=== PATIENT | female | born 1955 | race Caucasian/White ===

== ENCOUNTER 2021-03-25 05:09 | Emergency (ER) | payer BC, OTHER ==
--- NOTE | 2021-03-25 05:29 | EDM.PDOC ---
ED HPI GENERAL MEDICAL PROBLEM - General Chief Complaint: Respiratory Problem Stated Complaint: shortness of breath Time Seen by Provider: 03/25/21 05:15 Source of Information: Reports: Patient, Family History Limitations: Reports: No Limitations - History of Present Illness INITIAL COMMENTS - FREE TEXT/NARRATIVE: Patient presents here to the emergency room after 2 weeks of ongoing shortness of breath secondary to exposure of Covid at her faith. Patient has not seen a primary care provider because she does not believe any going to doctors she states she has been trying [id number] vitamins. She states she has a dry nonproductive cough intermittent fevers the highest it has been has been 100.7 several days ago but she says it is normally runs about 97-98 her temperature she also states the shortness of breath is no different and has not increased but she wanted to come get checked out. She states she is also had some myalgias with intermittent lower back pain but has no symptoms she has been drinking fluids about a quart of water a day and eating okay with no issues she denies any dyspnea on exertion orthopnea or PND no swelling to the lower extremities no chest pain She takes no medications has no medical history She has no other complaints at this time Duration: Week(s): Severity: Mild Associated Symptoms: Reports: Cough, Fever/Chills, Shortness of Breath. Denies: cough w sputum, Diaphoresis, Headaches, Loss of Appetite, Nausea/Vomiting, Weakness - Related Data Allergies Allergy/AdvReac Type Severity Reaction Status Date / Time No Known Allergies Allergy Verified 10/13/14 18:32 Home Meds: Home Meds traMADol [Ultram] 50 mg PO Q4H PRN #2 tab 10/13/14 [Rx] Past Medical History - Past Health History Medical/Surgical History: Denies Medical/Surgical History ED ROS GENERAL - Review of Systems Review Of Systems: See Below Constitutional: Reports: Fever. Denies: Chills, Malaise, Weakness, Fatigue, Night Sweats, Diaphoresis, Decreased Appetite HEENT: Reports: No Symptoms Respiratory: Reports: Shortness of Breath, Cough. Denies: Wheezing, Pleuritic Chest Pain, Hemoptysis Cardiovascular: Reports: No Symptoms Endocrine: Reports: No Symptoms GI/Abdominal: Reports: No Symptoms : Reports: No Symptoms. Denies: Discharge, Dysuria, Flank Pain, Frequency, Incontinence, Urgency Musculoskeletal: Reports: No Symptoms, Back Pain Skin: Reports: No Symptoms Neurological: Reports: No Symptoms Psychiatric: Reports: No Symptoms Hematologic/Lymphatic: Reports: No Symptoms Immunologic: Reports: No Symptoms ED EXAM, GENERAL - Physical Exam Exam: See Below Exam Limited By: No Limitations General Appearance: Alert, WD/WN, No Apparent Distress Eye Exam: Bilateral Eye: EOMI, Normal Inspection, PERRL Ears: Normal External Exam, Normal Canal, Hearing Grossly Normal, Normal TMs Nose: Normal Inspection, Normal Mucosa, No Blood Throat/Mouth: Normal Inspection, Normal Lips, Normal Teeth, Normal Gums, Normal Oropharynx, Normal Voice, No Airway Compromise, Other (Patient talking 15+ word sentences no acute distress noted no respiratory distress noted all vital signs within normal limits) Head: Atraumatic, Normocephalic Neck: Normal Inspection, Supple, Non-Tender, Full Range of Motion Respiratory/Chest: No Respiratory Distress, Lungs Clear, Normal Breath Sounds, No Accessory Muscle Use, Chest Non-Tender Cardiovascular: Normal Peripheral Pulses, Regular Rate, Rhythm, No Edema, No Gallop, No JVD, No Murmur, No Rub GI/Abdominal: Normal Bowel Sounds, Soft, Non-Tender, No Organomegaly, No Distention. No: Guarding, Rigid, Rebound Back Exam: Normal Inspection, Full Range of Motion. No: CVA Tenderness (L), CVA Tenderness (R) Extremities: Normal Inspection, Normal Range of Motion, Non-Tender, No Pedal Edema Neurological: Alert, Oriented, CN II-XII Intact, Normal Cognition, Normal Gait Psychiatric: Normal Affect, Normal Mood Skin Exam: Warm, Dry, Intact, Normal Color, No Rash Lymphatic: No Adenopathy Course - Vital Signs Text/Narrative:: CBC BMP Covid chest x-ray White blood cell count 5.5 Covid positive BMP within normal limits We will discharge patient on Decadron 4 mg 2 tablets every day x3 days Bilateral infiltrates consistent with pneumonia per chest x-ray Patient will be treated with 1 g Rocephin IM and Z-Ranjit and albuterol inhaler Vital signs were rechecked and found to be within normal limits respiratory rate is now 20 - Orders/Labs/Meds Orders: Active Orders 24 hr Category Date Time Status Chest 1V Frontal [CR] Stat Exams 03/25/21 05:23 Ordered Labs: Laboratory Tests 03/25/21 03/25/21 03/25/21 Range/Units 05:25 05:45 05:45 WBC 5.0 (4.0-10.0) x10^3/uL RBC 4.76 (4.00-5.50) x10^6/uL Hgb 13.9 (12.0-16.0) g/dL Hct 40.8 (33.0-47.0) % MCV 85.7 (78.0-93.0) fL MCH 29.2 (26.0-32.0) pg MCHC 34.1 (32.0-36.0) g/dL RDW Coeff of [place] 12.9 (10.0-15.0) % Plt Count 289 (130-400) x10^3/uL Immature Gran % (Auto) 2.00 H (0.00-0.43) % Neut % (Auto) 68.9 (50.0-80.0) % Lymph % (Auto) 19.9 L (25.0-50.0) % Hodgeman % (Auto) 8.4 (2.0-11.0) % Eos % (Auto) 0.4 (0.0-4.0) % Baso % (Auto) 0.4 (0.2-1.2) % Neut # (Auto) 3.5 (1.8-7.7) x10^3/uL Lymph # (Auto) 1.0 (1.0-4.8) x10^3/uL Hodgeman # (Auto) 0.4 (0.0-0.8) x10^3/uL Eos # (Auto) 0.0 (0.0-0.5) x10^3/uL Baso # (Auto) 0.0 (0.0-0.2) x10^3/uL Immature Gran # (Auto) 0.10 H (0.00-0.07) x10^3/uL Sodium 138 (136-145) mmol/L Potassium 3.6 (3.5-5.1) mmol/L Chloride 101 (98-107) mmol/L Carbon Dioxide 24 (21-32) mmol/L Anion Gap 16.6 H (5-15) mmol/L BUN 9 (7-18) mg/dL Creatinine 0.7 (0.55-1.02) mg/dL Est Cr Clr Drug Dosing TNP Estimated GFR (MDRD) > 60 Glucose 89 (70-99) mg/dL Calcium 8.7 (8.5-10.1) mg/dL SARS CoV-2 RNA Rapid ZULEYMA Positive H (NEGATIVE) Departure - Departure Time of Disposition: 07:00 Disposition: Home, Self-Care 01 Condition: Good Clinical Impression: COVID, Shortness of breath, Pneumonia due to COVID-19 virus - Discharge Information *PRESCRIPTION DRUG MONITORING PROGRAM REVIEWED*: No *COPY OF PRESCRIPTION DRUG MONITORING REPORT IN PATIENT DIMA: No Instructions: Shortness of Breath, Adult, [id number], COVID-19 Forms: ED Department Discharge Additional Instructions: Make sure you drink plenty of water I recommend at least 8 glasses of water a day Continue to take Tylenol 2 tablets every 4-6 hours as needed you may add in ibuprofen as well 600 mg every 6-8 hours as needed Take all medications as directed Follow-up with your primary care provider in the next 24 to 48 hours Return to emergency room if anything changes or gets worse - Problem List & Annotations (1) COVID SNOMED Code(s): 975898059 Code(s): U07.1 - COVID-19 Status: Acute (2) Shortness of breath SNOMED Code(s): 662222036 Code(s): R06.02 - SHORTNESS OF BREATH Status: Acute - My Orders Last 24 Hours: My Active Orders 03/25/21 05:23 Chest 1V Frontal [CR] Stat - Assessment/Plan Last 24 Hours: My Active Orders 03/25/21 05:23 Chest 1V Frontal [CR] Stat
[2021-03-25 06:12] LABS: CHLORIDE,CL 101 mmol/L (98-107); SODIUM,NA 138 mmol/L (136-145)
[2021-03-25 06:13] LABS: ANION GAP 16.6 mmol/L (5-15)
[2021-03-25 06:47] VITALS: BP 140/67; PULSE 74
[2021-03-25] MEDS ORDERED: cefTRIAXone 1 GM Vial IM ONE (07:04)
[2021-03-25] MEDS ORDERED: Azithromycin 250 MG Tab PO ONE (07:05)
--- NOTE | 2021-03-25 09:07 | CR ---
[id number] RAD/RAD Chest PA or AP 1V EXAM: RAD Chest PA or AP 1V INDICATION: SHORT OF BREATH, COVID POSITIVE. COMPARISON: None. DISCUSSION: Cardiomediastinal silhouette is normal in size and contour. Trace bilateral pleural effusions. Bibasilar subtle hazy opacifications overlying the lungs bilaterally. No pneumothorax. IMPRESSION: Trace bilateral pleural effusions. Bibasilar subtle hazy opacifications overlying the lungs bilaterally. Findings are likely infectious/inflammatory in nature as can be be seen with atypical/viral pneumonia. Jay Resendez DO 03/25/21 0907 Thank you for allowing us to participate in the care of your patient.
== END 2021-03-25 07:40 | disposition home or self-care (01) ==
LOC: VM.ED 05:09
DX: U07.1 COVID-19 (principal); J12.82 Pneumonia due to coronavirus disease 2019
CPT/HCPCS: 36415; 71045; 80048; 81001; 85025; 87040; 96372; 99284; 99285-25; A9270-GY; J0696; U0002